=== PATIENT | female | born 1980 | race Two or more races ===

== ENCOUNTER → 2020-10-11 | Outpatient (CLI) | payer OTHER ==
[~2020-10-11] VITALS: Ht 170.2 cm; Wt 70.3 kg
== END | disposition home or self-care (01) ==
LOC: OFIC 805 09:00
PROVIDERS: ATTEND Otolaryngology Otology & Neurotology
DX: J31.0 Chronic rhinitis (principal); H69.83 Other specified disorders of Eustachian tube, bilateral; R09.81 Nasal congestion; H93.8X3 Other specified disorders of ear, bilateral